=== PATIENT | male | born 1980 | race Caucasian/White ===

== ENCOUNTER 2023-06-04 16:36 | Observation (INO) | payer MEDICAID, SELFPAY ==
[2023-06-04 16:38] VITALS: BP 136/100; PULSE 106; RESP 20; TEMP 36.4; O2SAT 97; BMI 20.5
--- NOTE | 2023-06-04 16:48 | EX.ED.SAOD ---
HPI History of Present Illness Chief Complaint: Substance Abuse Detail of Chief Complaint: Heroin addiction Informant: patient Onset/Context/Timing Onset: Month(s) Context: Sudden Onset Timing: Continuous Quality: Uses daily. Has not had any heroin since yesterday Location: Snorts Current Severity: Moderate Maximum Severity: Moderate Worsened by: Abstinence Relieved by: Nothing Associated Symptoms Associated Symptoms: Positive for diarrhea*, tremor and palpatations; Negative for vomiting*, fever*, rash*, seizure, change in mental status, trauma, sex for drugs*, suicidal ideation or homicidal ideation Narrative Narrative: Patient is a 43-year-old male. He presents because he has problem with heroin use. He was in a program 1.5 years ago. He states he only stayed for a week. He did not complete the course of treatment. He began using several months ago. He states this is affected his life as far as social employment etc. States he snorts significant amount daily. Is not snorted since yesterday. He does report tremors, palpitations diarrhea abdominal cramps. He states he has been tested for hepatitis and is negative. He has never injected. He denies smoking. Prior similar symptoms: Yes Recent Illness/Hospitalization: No PFSH PFSH Medical History (Updated 06/04/23 @ 17:06 by Janie Henley) Drug abuse Home Medications NK 06/04/23 [History Last Taken Unknown] Allergy/AdvReac Type Severity Reaction Status Date / Time No Known Allergies Allergy Verified 06/04/23 16:37 Surgical History no surgical history no surgical history Social History (Updated 06/04/23 @ 16:[address] Jefferson Alcaraz MD) household members: none Smoking Status: Current some day smoker tobacco type: cigarettes substance use type: heroin ROS ROS ED Constitutional Constitutional ED: Reports chills, sweats and weight loss; Denies fever(s) or subjective Eyes Eyes: Denies blurry vision, change in vision or diplopia ENT ENT ED: Reports rhinorrhea; Denies ear pain or sore throat Cardiovascular Cardiovascular: Reports palpitations; Denies chest pain Respiratory/Chest Respiratory/Chest: Denies cough, dyspnea or dyspnea on exertion Gastrointestinal Gastrointestinal: Reports abdominal pain and diarrhea; Denies constipation, melena, nausea or vomiting Genitourinary Genitourinary ED: Denies dysuria or urinary frequency Musculoskeletal Musculoskeletal: Denies arthralgias or myalgias Integumentary Denies rash Neurologic Neurologic: Denies headache(s) or paresthesias Hematologic/Lymphatic Hematologic/Lymphatic: Denies easy bleeding or easy bruising EXAM Physical Exam Const Vital Signs: 06/04/23 16:38 Temperature 97.6 F L Temperature Source Temporal Pulse Rate 106 H Respiratory Rate 20 H Blood Pressure 136/100 H Blood Pressure Mean 112 Pulse Ox 97 Oxygen Delivery Method Room Air Positive well nourished, well developed and cachectic Constitutional Narrative: Patient appears very thin. His clothes are loose on him. He does not Dors weight loss. States he feels slightly anxious. General Appearance ED: well developed and cachectic; Negative for pallor Nutritional Appearance: cachectic HEENT Reports dry mucous membranes HEENT Narrative: Head is atraumatic and normocephalic. Ears normal. Patient has rhinorrhea. Posterior pharynx is normal. Mouth ED: Yes dry mucous membranes Mouth: dry mucous membranes Eyes PERRL and EOMs intact bilaterally Eyes Narrative: There is no nystagmus. General Eye ED: Negative for pale conjunctiva or scleral icterus Neck no lymphadenopathy, supple and no JVD Lymph Lymphatic: no lymphadenopathy noted and lymphadenopathy Chest Wall inspection of chest normal and palpation of chest normal Resp normal respiratory effort and clear to auscultation bilaterally Cardio regular rhythm, S1 normal heart sound, S2 normal heart sound and no murmurs Rate: tachycardic GI soft to palpation, non-distended and no masses; Negative for non-tender Auscultation: hyperactive bowel sounds Back/Spine no CVA tenderness Extremity Extremity Narrative: There is no clubbing or cyanosis noted. Piloerection noted. General Extremety ED: Negative for edema or tenderness General Extremity: Negative for edema Neuro oriented x3 and CN's II-XII intact bilaterally Rebel Coma Scale: document GCS findings Spontaneous Obeys Commands Oriented 15 Sensorium / Orientation: alert Speech: speech normal Psych thought process normal Mood & Affect: anxious Skin General Skin Exam: Negative for jaundice or pallor Lesions: no lesions Rashes: no rashes MDM MDM MDM Narrative Medical decision making narrative: Patient has signs symptoms of withdrawal from heroin. Patient was treated with phenobarb. Appropriate blood work was obtained for admission. Will contact hospitalist for admission for detox from heroin. Lab Data Labs: Lab was paged to draw patient's blood work. Will contact hospitalist for admission. Hospitalist can follow-up the blood work. Treatment and Re-Evaluation Narrative: Labs to be checked by hospitalist. Discharge Plan Triage Chief Complaint: Substance Abuse ED Provider: Jefferson Alcaraz Dx/Rx/DC Orders Clinical Impression: Opiate withdrawal, Sinus tachycardia seen on radiographer cardiac catheterization, Heroin addiction, Elevated BP without diagnosis of hypertension Prescriptions: No Action NK Primary Care Provider: Care Physician,No Primary Referrals: NOT,DEFINED [Non-Staff] - Disposition Disposition: Acute Care Hospital [facility]
[2023-06-04] MEDS: Phenobarbital 32.4 MG Tablet 97.2 MG PO (17:04)
[2023-06-04] MEDS: Ondansetron ODT 4 MG Tablet PO (17:04)
[2023-06-04] MEDS: Dicyclomine 10 MG Capsule 20 MG PO (17:04)
--- NOTE | 2023-06-04 17:16 | ED.RN ---
called lab to assist with blood draw. attempt by this RN and Nayla DEVLIN x2
[2023-06-04 17:41] LABS: Absolute Lymphocyte Count 0.77 X10^3/uL (0.83-4.51); Absolute Neutrophil Count 23.7 X10^3/uL (2.0-7.7); Basophil# 0.17 X10^3/uL; Basophil% 0.7 % (0-1); Eosinophil# 0.08 X10^3/uL; Eosinophils% 0.3 % (0-5); Hemoglobin 15.5 g/dL (13.0-16.5); Lymphocyte # 0.77 X10^3/ul (0.83-4.51); Mean Corpuscular Hgb 29.6 pg (27.0-32.0); Mean Corpuscular Volume 89.9 fL (80-94); Mean Platelet Vol. 10.3 fl (6.2-12.0); Monocyte# 0.63 X10^3/uL; Monocyte% 2.5 % (0-10); NRBC Flagged by Analyzer 0 % (0-5); Neutrophil % 92.8 % (47-70); POSITIVE DIFFERENTIAL YES; Platelet Count 240 K/mm3 (150-450); RBC Distribution Width CV 12.8 % (11.6-14.6); RBC Distribution Width SD 42.2 fl (35.1-43.9); Red Blood Count 5.23 M/mm3 (4.6-6.2); White Blood Count 25.5 K/mm3 (4.4-11.0)
[2023-06-04 17:43] LABS: Differential Indicated SCAN CRITERIA MET
--- NOTE | 2023-06-04 17:49 | NURSING ---
MED SURG THOMAS HEROIN WITHDRAWAL AND ADDICTION
[2023-06-04 17:55] LABS: Alcohol, Blood (Medical)-Serum < 3.0 mg/dL
--- NOTE | 2023-06-04 18:01 | PCM.HP.STD ---
HPI - General General Date of Service: 06/04/23 Chief Complaint: Heroin detox HPI Narrative PIOTR BARILLAS, is a 43-year-old male with history of heroin use disorder presented to [facility] ED 06/04/2023 for opioid detox. He was in a program a year and a half ago but only stayed for a week and did not complete course of treatment. Recently he has been using for several months and uses heroin and this has begun to affect his life in multiple areas. Snorts a significant amount of heroin daily but has not started since yesterday and denies any IV drug use. Does have some tremors, palpitations, diarrhea, abdominal cramps. Hospitalist contacted for admission for detox. Patient laying in bed with family member at bedside, gave permission to discuss in front of family member. Patient endorses snorting heroin daily for the past several months with last use yesterday and has had some chills and aches, patient got phenobarb in the ED so was tired and answers I do not know to most questions. [facility] Medical History (Updated 06/04/23 @ 18:[address] Reba Atkinson MD) Drug abuse Home Medications NK 06/04/23 [History Last Taken Unknown] Allergy/AdvReac Type Severity Reaction Status Date / Time No Known Allergies Allergy Verified 06/04/23 16:37 Surgical History no surgical history Social History (Updated 06/04/23 @ 16:[address] Jefferson Alcaraz MD) household members: none Smoking Status: Current some day smoker tobacco type: cigarettes substance use type: heroin ROS ROS Narrative Unable to fully obtain due to cooperation but does report some chills and aches and diarrhea Vital Signs Vital Signs Vital Signs: 06/04/23 16:38 Temperature 97.6 F L Temperature Source Temporal Pulse Rate 106 H Respiratory Rate 20 H Blood Pressure 136/100 H Blood Pressure Mean 112 Pulse Ox 97 Oxygen Delivery Method Room Air Weight Weight: 68.81 kg Body Mass Index (BMI) 20.5 Physical Exam Narrative General: Resting comfortably in bed HEENT: Atraumatic, normocephalic, dry lips Eyes: Primarily keeps eyes closed Neck: Supple Respiratory: normal respiratory effort Cardiovascular: no edema appreciated GI: nondistended Extremities: Moving all extremities Neuro: No overt focal neurological deficits Psych: Minimally cooperative Results Lab / Micro Data 06/04/23 Unknown 06/04/23 Unknown Labs: Laboratory Results - last 24 hr 06/04/23 : WBC 25.5 H, RBC 5.23, Hgb 15.5, Hct 47.0, MCV 89.9, MCH 29.6, MCHC 33.0, RDW Std Deviation 42.2, RDW Coeff of Saundra 12.8, Plt Count 240, MPV 10.3, Immature Gran % (Auto) 0.700, Neut % (Auto) 92.8 H, Lymph % (Auto) 3.0 L, [place] % (Auto) 2.5, Eos % (Auto) 0.3, Baso % (Auto) 0.7, Absolute Neuts (auto) 23.7 H, Absolute Lymphs (auto) 0.77 L, Nucleated RBC % 0, Ethyl Alcohol < 3.0 Assessment & Plan Assessment/Plan (1) Opiate withdrawal: (2) Heroin addiction: (3) Leukocytosis: PLAN: Plan #Acute opiate withdrawal - Subutex taper initiated - As needed Tylenol, ibuprofen, bowel regimen, gabapentin, Bentyl, Vistaril, methocarbamol, clonidine - As needed trazodone nightly - As needed antiemetics -Once patient begins to clinically improve will discuss further discharge planning -Denies any other substance use including alcohol use # Leukocytosis -Clinically patient appears very dry -Afebrile -Patient not forthcoming with ROS and only reports some chills, achiness, diarrhea, stuffy nose which could all be due to his heroin withdraw or could be viral in nature -Will check nasal swabs and enteric panel -Will also check UA -IV fluids #Mild hyponatremia -No baseline, does not seem to have any symptoms -Repeat in AM #Tobacco use -Reports occasional use -Advise cessation -Nicotine replacement available if desired #DVT ppx: Low risk, ambulatory Reba Atkinson MD Charges/Coding Visit Charges Inpatient E&M: 31943 Init Hosp L1
[2023-06-04 18:05] LABS: Differential Comment SCANNED
[2023-06-04 18:19] LABS: ALB/GLOB Ratio 0.6 RATIO (0.9-2.4); AST(SGOT) 20 U/L (15-37); Alanine Aminotransfer ALT/SGPT 29 U/L (16-61); Albumin, Serum 3.2 g/dL (3.2-5.0); Alkaline Phosphatase 131 U/L (45-117); Anion Gap 7 (5-15); BUN 14 mg/dL (7-18); BUN/Creat Ratio 20.1 RATIO (10-20); Calcium,Total 9.8 mg/dL (8.5-10.1); Chloride 102 mmol/L (98-107); EST Glomerular Filtration Rate 132 mL/min (>60); Est Glom Filt Rate - Afr Amer 160 mL/min (>60); Estimated Creatinine Clearance 135.16 ml/min; Globulin 5.1 g/dL (2.2-4.2); Glucose 138 mg/dL (74-106); Potassium 3.7 mmol/L (3.5-5.1); Protein, Total 8.3 g/dL (6.4-8.2); Sodium Level 131 mmol/L (136-145)
[2023-06-04 18:20] VITALS: BP 116/82; PULSE 99; RESP 16; TEMP 36.4; O2SAT 95
[2023-06-04 18:21] LABS: Red Blood Cells-Urine 0 SEEN /hpf (0-5); Squamous Epithelial Cells - UA 0 SEEN /hpf (0-5)
[2023-06-04 18:24] LABS: Color, Urine Yellow (Yellow); Glucose, Dipstick Normal (Normal); Leukocyte Esterase-Dipstick 25 /ul (Negative); Nitrite-Dipstick Negative (Negative); Occult Blood-Urine Negative /ul (Negative); Protein-Dipstick 30 mg/dl (Negative); Urine Clarity Clear (Clear); Urine Urobilinogen 4 mg/dl (Normal)
[2023-06-04 18:25] LABS: Urine Bilirubin Dipstick 1 mg/dL (Negative)
[2023-06-04 18:26] LABS: Ketone-Dipstick 150 mg/dl (Negative)
[2023-06-04 18:40] LABS: Amphetamine Urine VISTA NEGATIVE (<1000 ng/mL); Barbiturate Urine VISTA NEGATIVE (< 200 ng/mL); Benzodiazepine Urine VISTA NEGATIVE (< 200 ng/mL); Cocaine Urine VISTA POSITIVE (< 300 ng/mL); Ecstacy Urine VISTA NEGATIVE (< 500 ng/mL); Methadone Urine VISTA NEGATIVE (< 300 ng/mL); PCP Urine VISTA NEGATIVE (< 25 ng/mL); THC Urine VISTA NEGATIVE (< 50 ng/mL); Vista UDS pH Range 6
[2023-06-04 18:45] LABS: Bacteria RARE /hpf (None Seen); Mucous, Urine 2+ /hpf (<or=2+); White Blood Cells 0-5 SEEN /hpf (0-5)
[2023-06-04 19:04] VITALS: BMI 20.5
[2023-06-04 19:10] VITALS: BP 110/92; PULSE 89; RESP 16; TEMP 37; O2SAT 100
[2023-06-04] MEDS: 0.9% Normal Saline (1000mL) 1,000 ML 150 ML IV (20:29)
[2023-06-04 20:47] VITALS: BP 118/89; PULSE 107; RESP 18; TEMP 37; O2SAT 97
[2023-06-04] MEDS: traZODone 100 MG Tablet PO (20:50)
[2023-06-04] MEDS: Buprenorphine HCl 2 MG TAB.SUBL SL (20:50)
[2023-06-04] MEDS: hydrOXYzine PAM 25 MG Capsule 50 MG PO (20:50)
[2023-06-04] MEDS: Methocarbamol 750 MG Tablet PO (20:50)
[2023-06-05 01:00] VITALS: BP 113/86; PULSE 90; RESP 16; TEMP 37; O2SAT 96
[2023-06-05] MEDS: 0.9% Normal Saline (1000mL) 1,000 ML 150 ML IV (03:12)
[2023-06-05] MEDS: Buprenorphine HCl 2 MG TAB.SUBL SL ×3 (04:55→19:48)
[2023-06-05 05:00] VITALS: BP 124/82; PULSE 109; RESP 16; TEMP 36.8; O2SAT 98
[2023-06-05] MEDS: Acetaminophen 325 MG Tablet 650 MG PO ×2 (05:04→16:59)
[2023-06-05] MEDS: Dicyclomine 10 MG Capsule 20 MG PO ×2 (05:04→19:50)
[2023-06-05 06:37] LABS: Absolute Lymphocyte Count 1.83 X10^3/uL (0.83-4.51); Absolute Neutrophil Count 15.7 X10^3/uL (2.0-7.7); Basophil# 0.08 X10^3/uL; Basophil% 0.4 % (0-1); Eosinophil# 0.09 X10^3/uL; Eosinophils% 0.5 % (0-5); Lymphocyte # 1.83 X10^3/ul (0.83-4.51); Lymphocyte % 9.5 % (19-41); Mean Corp Hgb Conc 33.3 g/dL (32-36); Mean Corpuscular Hgb 29.4 pg (27.0-32.0); Mean Corpuscular Volume 88.2 fL (80-94); Mean Platelet Vol. 9.8 fl (6.2-12.0); Monocyte# 1.38 X10^3/uL; Monocyte% 7.2 % (0-10); NRBC Flagged by Analyzer 0 % (0-5); Neutrophil # 15.65 X10^3/uL (2.7-7.7); Neutrophil % 81.6 % (47-70); Platelet Count 268 K/mm3 (150-450); RBC Distribution Width CV 12.8 % (11.6-14.6); RBC Distribution Width SD 41.7 fl (35.1-43.9); Red Blood Count 4.42 M/mm3 (4.6-6.2); White Blood Count 19.2 K/mm3 (4.4-11.0)
[2023-06-05 07:11] LABS: ALB/GLOB Ratio 0.6 RATIO (0.9-2.4); AST(SGOT) 13 U/L (15-37); Alanine Aminotransfer ALT/SGPT 21 U/L (16-61); Albumin, Serum 2.5 g/dL (3.2-5.0); Alkaline Phosphatase 97 U/L (45-117); Anion Gap 6 (5-15); BUN 14 mg/dL (7-18); BUN/Creat Ratio 20.4 RATIO (10-20); Calcium,Total 8.9 mg/dL (8.5-10.1); Chloride 106 mmol/L (98-107); Creatinine, Serum 0.69 mg/dL (0.70-1.30); EST Glomerular Filtration Rate 135 mL/min (>60); Est Glom Filt Rate - Afr Amer 163 mL/min (>60); Estimated Creatinine Clearance 136.49 ml/min; Globulin 4.1 g/dL (2.2-4.2); Glucose 132 mg/dL (74-106); Magnesium 2.3 mg/dL (1.6-2.6); Potassium 3.5 mmol/L (3.5-5.1); Protein, Total 6.6 g/dL (6.4-8.2); Sodium Level 138 mmol/L (136-145); Thyroid Stim Hormone (TSH) 0.27 uIU/mL (0.358-3.74)
[2023-06-05 08:32] VITALS: BP 135/98; PULSE 95; RESP 16; TEMP 36.6; O2SAT 97
--- NOTE | 2023-06-05 08:40 | PN.HOSP_ITS ---
Reason for Visit Reason for Visit: Diagnoses Elevated white blood cell count, unspecified (06/04/23) Opioid dependence, uncomplicated (06/04/23) Opioid use, unspecified with withdrawal (06/04/23) Objective Data Objective Data Vital Signs: Vital Signs Temp Pulse Resp BP Pulse Ox O2 Del Method 97.8 F 95 16 135/98 H 97 Room Air 06/05/23 08:32 06/05/23 08:32 06/05/23 08:32 06/05/23 08:32 06/05/23 08:32 06/05/23 08:32 Oxygen Delivery Method Room Air Weight: 151 lb Body Mass Index (BMI) 20.5 Intake & Output: Intake and Output for Last 24 Hours 06/03/23 06/04/23 06/05/23 23:59 23:59 23:59 Intake Total 1000 / 1000 Balance 1000 / 1000 Lab / Micro Data 06/05/23 06:10 06/05/23 06:10 Labs: Laboratory Results - last 24 hr 06/04/23 18:20: Urine Color Yellow, Urine Clarity Clear, Urine pH 6.0, Ur Specific [place] 1.020, Urine Protein 30 H, Urine Glucose (UA) Normal, Urine Ketones 150 A*, Urine Occult Blood Negative, Urine Nitrite Negative, Urine Bilirubin 1 H, Urine Urobilinogen 4 H, Ur Leukocyte Esterase 25 H, Urine RBC 0 S EEN, Urine WBC 0-5 SEEN, Ur Squamous Epith Cells 0 SEEN, Urine Bacteria RARE, Urine Mucus 2+ , Urine Opiates Screen NEGATIVE, Urine Methadone Screen NEGATIVE, Ur Barbiturates Screen NEGATIVE, Ur Phencyclidine Scrn NEGATIVE, Ur Amphetamines Screen NEGATIVE, MDMA (Ecstasy) Screen NEGATIVE, U Benzodiazepines Scrn NEGATIVE, Urine Cocaine Screen POSITIVE H, U Cannabinoids Screen NEGATIVE, Ur Drug Screen Comment 06/04/23 : WBC 25.5 H, RBC 5.23, Hgb 15.5, Hct 47.0, MCV 89.9, MCH 29.6, MCHC 33.0, RDW Std Deviation 42.2, RDW Coeff of Saundra 12.8, Plt Count 240, MPV 10.3, Immature Gran % (Auto) 0.700, Neut % (Auto) 92.8 H, Lymph % (Auto) 3.0 L, [place] % (Auto) 2.5, Eos % (Auto) 0.3, Baso % (Auto) 0.7, Absolute Neuts (auto) 23.7 H, Absolute Lymphs (auto) 0.77 L, Nucleated RBC % 0, Differential Comment SCANNED, Sodium 131 L, Potassium 3.7, Chloride 102, Carbon Dioxide 22.0, Anion Gap 7, BUN 14, Creatinine 0.70, Estim Creat Clear Calc 135.16, Est GFR (MDRD) Af Amer 160, Est GFR (MDRD) Non-Af 132, BUN/Creatinine Ratio 20.1 H, Glucose 138 H, Calcium 9.8, Total Bilirubin 0.60, AST 20, ALT 29, Alkaline Phosphatase 131 H, Total Protein 8.3 H, Albumin 3.2, Globulin 5.1 H, Albumin/Globulin Ratio 0.6 L, Ethyl Alcohol < 3.0 06/05/23 06:10: WBC 19.2 H, RBC 4.42 L, Hgb 13.0, Hct 39.0 L, MCV 88.2, MCH 29.4, MCHC 33.3, RDW Std Deviation 41.7, RDW Coeff of Saundra 12.8, Plt Count 268, MPV 9.8, Immature Gran % (Auto) 0.800, Neut % (Auto) 81.6 H, Lymph % (Auto) 9.5 L, [place] % (Auto) 7.2, Eos % (Auto) 0.5, Baso % (Auto) 0.4, Absolute Neuts (auto) 15.7 H, Absolute Lymphs (auto) 1.83, Nucleated RBC % 0, Sodium 138, Potassium 3.5, Chloride 106, Carbon Dioxide 26.0, Anion Gap 6, BUN 14, Creatinine 0.69 L, Estim Creat Clear Calc 136.49, Est GFR (MDRD) Af Amer 163, Est GFR (MDRD) Non-Af 135, BUN/Creatinine Ratio 20.4 H, Glucose 132 H, Calcium 8.9, Magnesium 2.3, Total Bilirubin 0.30, AST 13 L, ALT 21, Alkaline Phosphatase 97, Total Protein 6.6, Albumin 2.5 L, Globulin 4.1, Albumin/Globulin Ratio 0.6 L, TSH 0.27 L Micro: Microbiology 06/04/23 20:08 Interface Orders Respiratory Panel (PCR) - Final 06/04/23 20:08 Mucosa - Nose SARS-CoV-2, Influenza & RSV (PCR) - Final Physical Exam Narrative Seen and examined. Patient having a lot of anxiety, crawling position. Feeling cold. Did not finish his breakfast. Physical exam General: Awake, drowsy and lethargic, oriented x3, Cooperative HEENT: Atraumatic, PERRLA, EOMI, Normocephalic Oral: Oral mucosa dry. No Gingival or Mucosal Lesions/ Ulcerations Neck: Supple, No JVD, Negative Carotid Bruits Chest wall/Lungs: Air entry diminished in bilateral lung bases. No crepitation/rhonchi Cardiovascular: Regular rate, Regular Rhythm, Normal S1, Normal S2, No M/G/R Abdomen: Bowel Sounds Present, Soft, Non Tender, Non-Distended : No dysuria. No renal angle tenderness. No suprapubic tenderness. Extremities: No edema, Capillary Refill Less than 3 Seconds Skin: No rashes, No breakdown. Needle track signs not obvious on upper, lower extremity and neck. Musculoskeletal: No Tenderness to Palpation of Joints or Extremities Neurological: Cranial nerves II-XII grossly intact, DTR 2+/4. No acute focal neurological deficit. Psych/Mental Status: Anxious. Denies hallucination. Assessment & Plan Assessment/Plan (1) Opiate withdrawal: (2) Heroin addiction: (3) Leukocytosis: PLAN: Plan This 43-year-old gentleman being admitted for acute opioid withdrawal syndrome but also has significant leukocytosis. #Acute opiate withdrawal syndrome with history of chronic opioid use disorder, dependence and tolerance: Patient is admitted on [facility] floor. The patient is started on buprenorphine along with other adjunctive medications as needed for m edical stabilization as per order set of opioid withdrawal syndrome.Patient also on trazodone, hydroxyzine, gabapentin as needed ordered. Advised quitting opioid use. social media project manager consult. Denies any other substance use including opioid use but urine was positive for cocaine. # Leukocytosis, exact etiology unclear possible patient is very dry, noninflammatory/noninfectious: Patient denies any focal symptoms of infection including fever. Denies diarrhea stuffy nose achiness. No abdominal te nderness. SARS-CoV-2 influenza and RSV PCR negative. Respiratory panel negative.C. difficile and enteric panel pending but patient probably did not had bowel movement. UA not suggestive of UTI and patient does not have burning micturition/dysuria. No indication for IV antibiotics.Leukocytosis improving. - - #Mild hyponatremia: Serum sodium was 131. Improved to 138. Potassium low normal therefore replaced. #Tobacco use -Reports occasional use -Advise cessation -Nicotine replacement available if desired Low TSH: Exact significance unclear. Free T4 ordered for tomorrow AM. Possible Euthroid sick syndrome. #DVT ppx: Low risk, ambulatory Microbiology Past 72 Hours 06/04/23 20:08 Interface Orders Respiratory Panel (PCR) - Final 06/04/23 20:08 Mucosa - Nose SARS-CoV-2, Influenza & RSV (PCR) - Final Laboratory Results 06/04/23 18:20: Urine Color Yellow, Urine Clarity Clear, Urine pH 6.0, Ur Specific [place] 1.020, Urine Protein 30 H, Urine Glucose (UA) Normal, Urine Ketones 150 A*, Urine Occult Blood Negative, Urine Nitrite Negative, Urine Bilirubin 1 H, Urine Urobilinogen 4 H, Ur Leukocyte Esterase 25 H, Urine RBC 0 SEEN, Urine WBC 0-5 SEEN, Ur Squamous Epith Cells 0 SEEN, Urine Bacteria RARE, Urine Mucus 2+, Urine Opiates Screen NEGATIVE, Urine Methadone Screen NEGATIVE, Ur Barbiturates Screen NEGATIVE, Ur Phencyclidine Scrn NEGATIVE, Ur Amphetamines Screen NEGATIVE, MDMA (Ecstasy) Screen NEGATIVE, U Benzodiazepines Scrn NEGATIVE, Urine Cocaine Screen POSITIVE H, U Cannabinoids Screen NEGATIVE, Ur Drug Screen Comment 06/04/23 : WBC 25.5 H, RBC 5.23, Hgb 15.5, Hct 47.0, MCV 89.9, MCH 29.6, MCHC 33.0, RDW Std Deviation 42.2, RDW Coeff of Saundra 12.8, Plt Count 240, MPV 10.3, Immature Gran % (Auto) 0.700, Neut % (Auto) 92.8 H, Lymph % (Auto) 3.0 L, [place] % (Auto) 2.5, Eos % (Auto) 0.3, Baso % (Auto) 0.7, Absolute Neuts (auto) 23.7 H, Absolute Lymphs (auto) 0.77 L, Nucleated RBC % 0, Differential Comment SCANNED, Sodium 131 L, Potassium 3.7, Chloride 102, Carbon Dioxide 22.0, Anion Gap 7, BUN 14, Creatinine 0.70, Estim Creat Clear Calc 135.16, Est GFR (MDRD) Af Amer 160, Est GFR (MDRD) Non-Af 132, BUN/Creatinine Ratio 20.1 H, Glucose 138 H, Calcium 9.8, Total Bilirubin 0.60, AST 20, ALT 29, Alkaline Phosphatase 131 H, Total Protein 8.3 H, Albumin 3.2, Globulin 5.1 H, Albumin/Globulin Ratio 0.6 L, Ethyl Alcohol < 3.0 06/05/23 06:10: WBC 19.2 H, RBC 4.42 L, Hgb 13.0, Hct 39.0 L, MCV 88.2, MCH 29.4, MCHC 33.3, RDW Std Deviation 41.7, RDW Coeff of Saundra 12.8, Plt Count 268, MPV 9.8, Immature Gran % (Auto) 0.800, Neut % (Auto) 81.6 H, Lymph % (Auto) 9.5 L, [place] % (Auto) 7.2, Eos % (Auto) 0.5, Baso % (Auto) 0.4, Absolute Neuts (auto) 15.7 H, Absolute Lymphs (auto) 1.83, Nucleated RBC % 0, Sodium 138, Potassium 3.5, Chloride 106, Carbon Dioxide 26.0, Anion Gap 6, BUN 14, Creatinine 0.69 L, Estim Creat Clear Calc 136.49, Est GFR (MDRD) Af Amer 163, Est GFR (MDRD) Non-Af 135, BUN/Creatinine Ratio 20.4 H, Glucose 132 H, Calcium 8.9, Magnesium 2.3, Total Bilirubin 0.30, AST 13 L, ALT 21, Alkaline Phosphatase 97, Total Protein 6.6, Albumin 2.5 L, Globulin 4.1, Albumin/Globulin Ratio 0.6 L, TSH 0.27 L Charges/Coding Visit Charges Inpatient E&M: 81346 Subs Hosp L2
[2023-06-05] MEDS: Methocarbamol 750 MG Tablet PO ×2 (11:30→19:50)
[2023-06-05 12:25] LABS: Magnesium 2.3 mg/dL (1.6-2.6); Phosphorus 2.1 mg/dL (2.5-4.9)
[2023-06-05] MEDS: Lactated Ringers 1,000 ML 999 ML IV (13:13)
[2023-06-05] MEDS: 0.9% Saline Lock 10 ML Syringe IV (13:13)
[2023-06-05] MEDS: Potassium Chloride Oral Tablet 20 MEQ 40 MEQ PO (13:15)
[2023-06-05 13:41] VITALS: BP 147/98; PULSE 96; RESP 16; TEMP 36.8; O2SAT 100
--- NOTE | 2023-06-05 14:14 | ADDICTION ---
This communications writer met with PT to conduct ASAM, MSE, AUDIT assessments and to plan for d/c. PT A+Ox4 and participated actively. All assessments completed and placed in PT's chart. PT plans to f/u with [facility] for follow-up treatment services. [facility] will provide transportation to treatment on Thursday post d/c from [facility].
[2023-06-05] MEDS: Gabapentin 300 MG Capsule PO (16:59)
[2023-06-05] MEDS: Loperamide 2 MG Capsule PO (19:50)
[2023-06-05] MEDS: cloNIDine HCl 0.1 MG Tablet PO (19:50)
[2023-06-05] MEDS: traZODone 100 MG Tablet PO (19:50)
[2023-06-05] MEDS: Ondansetron 8 MG Tablet PO (19:50)
[2023-06-05 21:46] VITALS: BP 124/89; PULSE 97; RESP 18; TEMP 36.6; O2SAT 98
[2023-06-06 04:15] VITALS: BP 112/81; PULSE 80; RESP 18; TEMP 36.9; O2SAT 96
[2023-06-06] MEDS: Dicyclomine 10 MG Capsule 20 MG PO ×3 (04:19→19:49)
[2023-06-06] MEDS: Gabapentin 300 MG Capsule PO ×2 (04:19→16:57)
[2023-06-06] MEDS: cloNIDine HCl 0.1 MG Tablet PO ×2 (04:19→19:50)
[2023-06-06] MEDS: Buprenorphine HCl 2 MG TAB.SUBL SL ×3 (04:19→19:49)
[2023-06-06] MEDS: hydrOXYzine PAM 25 MG Capsule 50 MG PO (04:20)
[2023-06-06 06:44] LABS: Hematocrit 39.8 % (40-54); Mean Corp Hgb Conc 32.7 g/dL (32-36); Mean Corpuscular Hgb 29.3 pg (27.0-32.0); Mean Corpuscular Volume 89.8 fL (80-94); Mean Platelet Vol. 9.9 fl (6.2-12.0); Platelet Count 299 K/mm3 (150-450); RBC Distribution Width CV 13.2 % (11.6-14.6); RBC Distribution Width SD 43.7 fl (35.1-43.9); Red Blood Count 4.43 M/mm3 (4.6-6.2); White Blood Count 10.3 K/mm3 (4.4-11.0)
[2023-06-06 07:07] LABS: Anion Gap 3 (5-15); BUN 10 mg/dL (7-18); BUN/Creat Ratio 14.2 RATIO (10-20); Calcium,Total 9.1 mg/dL (8.5-10.1); Chloride 111 mmol/L (98-107); EST Glomerular Filtration Rate 131 mL/min (>60); Est Glom Filt Rate - Afr Amer 158 mL/min (>60); Estimated Creatinine Clearance 134.54 ml/min; Glucose 125 mg/dL (74-106); Potassium 3.8 mmol/L (3.5-5.1); Sodium Level 142 mmol/L (136-145)
[2023-06-06] MEDS: Potassium Chloride Oral Tablet 20 MEQ 40 MEQ PO (08:29)
[2023-06-06] MEDS: Methocarbamol 750 MG Tablet PO ×2 (08:31→16:57)
[2023-06-06 08:44] VITALS: BP 114/89; PULSE 75; RESP 16; TEMP 36.8; O2SAT 99
[2023-06-06] MEDS: Acetaminophen 325 MG Tablet 650 MG PO ×2 (11:49→19:49)
[2023-06-06 12:00] VITALS: BP 122/82; PULSE 104; RESP 16; TEMP 36.9; O2SAT 98
--- NOTE | 2023-06-06 15:28 | PCM.PN.HOSP ---
Reason for Visit Reason for Visit: Diagnoses Elevated white blood cell count, unspecified (06/04/23) Opioid dependence, uncomplicated (06/04/23) Opioid use, unspecified with withdrawal (06/04/23) Objective Data Objective Data Vital Signs: Vital Signs Temp Pulse Resp BP Pulse Ox O2 Del Method 98.4 F 104 H 16 122/82 H 98 Room Air 06/06/23 12:00 06/06/23 12:00 06/06/23 12:00 06/06/23 12:00 06/06/23 12:00 06/06/23 14:04 Oxygen Delivery Method Room Air Weight: 150 lb 15.984 oz Body Mass Index (BMI) 20.5 Intake & Output: Intake and Output for Last 24 Hours 06/04/23 06/05/23 06/06/23 23:59 23:59 23:59 Intake Total 5097.5 / 5097.5 800 / 800 Balance 5097.5 / 5097.5 800 / 800 Lab / Micro Data 06/06/23 05:25 06/06/23 05:25 Labs: Laboratory Results - last 24 hr 06/06/23 05:25: WBC 10.3, RBC 4.43 L, Hgb 13.0, Hct 39.8 L, MCV 89.8, MCH 29.3, MCHC 32.7, RDW Std Deviation 43.7, RDW Coeff of Saundra 13.2, Plt Count 299, MPV 9.9, Sodium 142, Potassium 3.8, Chloride 111 H, Carbon Dioxide 28.0, Anion Gap 3 L, BUN 10, Creatinine 0.70, Estim Creat Clear Calc 134.54, Est GFR (MDRD) Af Amer 158, Est GFR (MDRD) Non-Af 131, BUN/Creatinine Ratio 14.2, Glucose 125 H, Calcium 9.1 Micro: Microbiology 06/05/23 17:00 Stool Enteric Bacteriology - Final 06/05/23 17:00 Stool Clostridioides difficile (PCR) - Final 06/04/23 20:08 Interface Orders Respiratory Panel (PCR) - Final 06/04/23 20:08 Mucosa - Nose SARS-CoV-2, Influenza & RSV (PCR) - Final Physical Exam Narrative Seen and examined. Patient is states his anxiety level, restlessness is better. Having diarrhea loose bowel movement and abdominal cramps. He got medications. Physical exam General: Awake,oriented x3, Cooperative. More calmer and quite HEENT: Atraumatic, PERRLA, EOMI, Normocephalic Oral: Oral mucosa moist. No Gingival or Mucosal Lesions/ Ulcerations Neck: Supple, No JVD, Negative Carotid Bruits Chest wall/Lungs: Air entry diminished in bilateral lung bases. No crepitation/rhonchi Cardiovascular: Regular rate, Regular Rhythm, Normal S1, Normal S2, No M/G/R Abdomen: Bowel Sounds Present, Soft, Non Tender, Non-Distended : No dysuria. No renal angle tenderness. No suprapubic tenderness. Extremities: No edema, Capillary Refill Less than 3 Seconds Skin: No rashes, No breakdown. Needle track signs not obvious on upper, lower extremity and neck. Musculoskeletal: No Tenderness to Palpation of Joints or Extremities Neurological: Cranial nerves II-XII grossly intact, DTR 2+/4. No acute focal neurological deficit. Psych/Mental Status: Anxious. Denies hallucination. Assessment & Plan Assessment/Plan (1) Opiate withdrawal: (2) Heroin addiction: (3) Leukocytosis: PLAN: Plan This 43-year-old gentleman being admitted for acute opioid withdrawal syndrome but also has significant leukocytosis. #Acute opiate withdrawal syndrome with history of chronic opioid use disorder, dependence and tolerance: [facility] The patient is started on buprenorphine along with other adjunctive medications as needed for medical stabilization as per order set of opioid withdrawal syndrome.Patient also on trazodone, hydroxyzine, gabapentin as needed ordered. Advised quitting opioid use. card room manager consult. Denies any other substance use including opioid use but urine was positive for cocaine. # Leukocytosis, exact etiology unclear possible patient is very dry, noninflammatory/noninfectious: Patient denies any focal symptoms of infection including fever. Denies diarrhea stuffy nose achiness. No abdominal tenderness. SARS-CoV-2 influenza and RSV PCR negative. Respiratory panel negative.C. difficile and enteric panel pending but patient probably did not had bowel movement. UA not suggestive of UTI and patient does not have burning micturition/dysuria. No indication for IV antibiotics.Leukocytosis improving. 06/06: Leukocytosis resolved. WBC count 10.3 thousand. - #Mild hyponatremia: Serum sodium was 131. Improved to 138. Potassium low normal therefore replaced. 2/24: Serum sodium 142. Potassium 3.8. Hypophosphatemia, phosphorus 2.1. Neutra-Phos ordered. #Tobacco use -Reports occasional use -Advise cessation -Nicotine replacement available if desired Low TSH: Exact significance unclear. Free T4 ordered for tomorrow AM. Possible Euthroid sick syndrome. #DVT ppx: Low risk, ambulatory Microbiology Past 72 Hours 06/05/23 17:00 Stool Enteric Bacteriology - Final 06/05/23 17:00 Stool Clostridioides difficile (PCR) - Final 06/04/23 20:08 Interface Orders Respiratory Panel (PCR) - Final 06/04/23 20:08 Mucosa - Nose SARS-CoV-2, Influenza & RSV (PCR) - Final Laboratory Results 06/06/23 05:25: WBC 10.3, RBC 4.43 L, Hgb 13.0, Hct 39.8 L, MCV 89.8, MCH 29.3, MCHC 32.7, RDW Std Deviation 43.7, RDW Coeff of Saundra 13.2, Plt Count 299, MPV 9.9, Sodium 142, Potassium 3.8, Chloride 111 H, Carbon Dioxide 28.0, Anion Gap 3 L, BUN 10, Creatinine 0.70, Estim Creat Clear Calc 134.54, Est GFR (MDRD) Af Amer 158, Est GFR (MDRD) Non-Af 131, BUN/Creatinine Ratio 14.2, Glucose 125 H, Calcium 9.1 Charges/Coding Visit Charges Inpatient E&M: 52821 Subs Hosp L2
[2023-06-06] MEDS: Loperamide 2 MG Capsule PO (16:57)
[2023-06-06] MEDS: Na Biphos/Potassium Phosphate PACKET 1 PACKET PO ×2 (16:57→19:48)
[2023-06-06 17:02] VITALS: BP 117/79; PULSE 99; RESP 16; TEMP 37.1; O2SAT 98
[2023-06-06] MEDS: Ondansetron 8 MG Tablet PO (19:48)
[2023-06-06] MEDS: Ibuprofen 600 MG Tablet PO (19:49)
[2023-06-06] MEDS: traZODone 100 MG Tablet PO (19:50)
[2023-06-06 20:01] VITALS: BP 126/83; PULSE 88; RESP 18; TEMP 36.8; O2SAT 97
[2023-06-07 03:55] VITALS: BP 137/84; PULSE 87; RESP 18; TEMP 36.7; O2SAT 100
[2023-06-07] MEDS: Na Biphos/Potassium Phosphate PACKET 1 PACKET PO ×3 (07:54→21:14)
[2023-06-07] MEDS: Buprenorphine HCl 2 MG TAB.SUBL SL (07:54)
[2023-06-07] MEDS: Dicyclomine 10 MG Capsule 20 MG PO ×2 (07:54→15:26)
[2023-06-07] MEDS: Gabapentin 300 MG Capsule PO ×2 (07:54→21:14)
[2023-06-07] MEDS: Ibuprofen 600 MG Tablet PO ×2 (07:54→17:36)
[2023-06-07 08:36] VITALS: BP 123/84; PULSE 87; RESP 16; TEMP 36.9; O2SAT 99
[2023-06-07 11:49] VITALS: BP 119/86; PULSE 98; RESP 16; TEMP 36.8; O2SAT 97
--- NOTE | 2023-06-07 12:32 | PCM.PN.HOSP ---
Reason for Visit Reason for Visit: Diagnoses Elevated white blood cell count, unspecified (06/04/23) Opioid dependence, uncomplicated (06/04/23) Opioid use, unspecified with withdrawal (06/04/23) Objective Data Objective Data Vital Signs: Vital Signs Temp Pulse Resp BP Pulse Ox O2 Del Method 98.2 F 98 16 119/86 H 97 Room Air 06/07/23 11:49 06/07/23 11:49 06/07/23 11:49 06/07/23 11:49 06/07/23 11:49 06/07/23 11:49 Oxygen Delivery Method Room Air Weight: 150 lb 15.984 oz Body Mass Index (BMI) 20.5 Intake & Output: Intake and Output for Last 24 Hours 06/05/23 06/06/23 06/07/23 23:59 23:59 23:59 Intake Total 5097.5 / 5097.5 1250 / 2250 2100 / 2100 Balance 5097.5 / 5097.5 1250 / 2250 2100 / 2100 Lab / Micro Data 06/06/23 05:25 06/06/23 05:25 Micro: Microbiology 06/05/23 17:00 Stool Enteric Bacteriology - Final 06/05/23 17:00 Stool Clostridioides difficile (PCR) - Final 06/04/23 20:08 Interface Orders Respiratory Panel (PCR) - Final 06/04/23 20:08 Mucosa - Nose SARS-CoV-2, Influenza & RSV (PCR) - Final Physical Exam Narrative Seen and examined. Patient is states his anxiety level, restlessness is better. He got medications. Physical exam General: Awake,oriented x3, Cooperative. More calmer and quite HEENT: Atraumatic, PERRLA, EOMI, Normocephalic Oral: Oral mucosa moist. No Gingival or Mucosal Lesions/ Ulcerations Neck: Supple, No JVD, Negative Carotid Bruits Chest wall/Lungs: Air entry diminished in bilateral lung bases. No crepitation/rhonchi Cardiovascular: Regular rate, Regular Rhythm, Normal S1, Normal S2, No M/G/R Abdomen: Bowel Sounds Present, Soft, Non Tender, Non-Distended : No dysuria. No renal angle tenderness. No suprapubic tenderness. Extremities: No edema, Capillary Refill Less than 3 Seconds Skin: No rashes, No breakdown. Needle track signs not obvious on upper, lower extremity and neck. Musculoskeletal: No Tenderness to Palpation of Joints or Extremities Neurological: Cranial nerves II-XII grossly intact, DTR 2+/4. No acute focal neurological deficit. Psych/Mental Status: Anxiety level is better. Denies hallucination. Assessment & Plan Assessment/Plan (1) Opiate withdrawal: (2) Heroin addiction: (3) Leukocytosis: PLAN: Plan This 43-year-old gentleman being admitted for acute opioid withdrawal syndrome but also has significant leukocytosis. #Acute opiate withdrawal syndrome with history of chronic opioid use disorder, dependence and tolerance: Patient is admitted on [facility] floor. The patient is started on buprenorphine along with other adjunctive medications as needed for medical stabilization as per order set of opioid withdrawal syndrome.Patient also on trazodone, hydroxyzine, gabapentin as needed ordered. Advised quitting opioid use. nursery manager consult. Denies any other substance use including opioid use but urine was positive for cocaine. # Leukocytosis, exact etiology unclear possible patient is very dry, noninflammatory/noninfectious: Patient denies any focal symptoms of infection including fever. Denies diarrhea stuffy nose achiness. No abdominal tenderness. SARS-CoV-2 influenza and RSV PCR negative. Respiratory panel negative.C. difficile and enteric panel pending but patient probably did not had bowel movement. UA not suggestive of UTI and patient does not have burning micturition/dysuria. No indication for IV antibiotics.Leukocytosis improving. 06/06: Leukocytosis resolved. WBC count 10.3 thousand. 06/07: Patient is doing good. Expected discharge tomorrow. #Mild hyponatremia: Serum sodium was 131. Improved to 138. Potassium low normal therefore replaced. 06/06: Serum sodium 142. Potassium 3.8. Hypophosphatemia, phosphorus 2.1. Neutra-Phos ordered. #Tobacco use -Reports occasional use -Advise cessation -Nicotine replacement available if desired Low TSH: Exact significance unclear. Free T4 ordered for tomorrow AM. Possible Euthroid sick syndrome. #DVT ppx: Low risk, ambulatory Microbiology Past 72 Hours 06/05/23 17:00 Stool Enteric Bacteriology - Final 06/05/23 17:00 Stool Clostridioides difficile (PCR) - Final 06/04/23 20:08 Interface Orders Respiratory Panel (PCR) - Final 06/04/23 20:08 Mucosa - Nose SARS-CoV-2, Influenza & RSV (PCR) - Final Laboratory Results 06/06/23 05:25: WBC 10.3, RBC 4.43 L, Hgb 13.0, Hct 39.8 L, MCV 89.8, MCH 29.3, MCHC 32.7, RDW Std Deviation 43.7, RDW Coeff of Saundra 13.2, Plt Count 299, MPV 9.9, Sodium 142, Potassium 3.8, Chloride 111 H, Carbon Dioxide 28.0, Anion Gap 3 L, BUN 10, Creatinine 0.70, Estim Creat Clear Calc 134.54, Est GFR (MDRD) Af Amer 158, Est GFR (MDRD) Non-Af 131, BUN/Creatinine Ratio 14.2, Glucose 125 H, Calcium 9.1 Charges/Coding Visit Charges Inpatient E&M: 40355 Subs Hosp L2
[2023-06-07] MEDS: Acetaminophen 325 MG Tablet 650 MG PO ×2 (13:25→21:14)
[2023-06-07] MEDS: hydrOXYzine PAM 25 MG Capsule 50 MG PO (15:26)
[2023-06-07] MEDS: Methocarbamol 750 MG Tablet PO (15:26)
[2023-06-07 15:42] VITALS: BP 117/88; PULSE 87; RESP 16; TEMP 36.8; O2SAT 97
[2023-06-07 21:03] VITALS: BP 148/82; PULSE 86; RESP 16; TEMP 36.4; O2SAT 94
[2023-06-07] MEDS: traZODone 100 MG Tablet PO (21:14)
[2023-06-07] MEDS: cloNIDine HCl 0.1 MG Tablet PO (21:14)
[2023-06-07] MEDS: Loperamide 2 MG Capsule PO (21:14)
[2023-06-07] MEDS: Ondansetron 8 MG Tablet PO (21:15)
[2023-06-08 03:05] VITALS: BP 117/77; PULSE 73; RESP 16; TEMP 36.5; O2SAT 97
[2023-06-08] MEDS: Methocarbamol 750 MG Tablet PO (03:11)
[2023-06-08] MEDS: hydrOXYzine PAM 25 MG Capsule 50 MG PO ×2 (03:11→09:26)
[2023-06-08] MEDS: Ibuprofen 600 MG Tablet PO ×2 (03:11→09:26)
[2023-06-08] MEDS: Na Biphos/Potassium Phosphate PACKET 1 PACKET PO (05:37)
[2023-06-08] MEDS: Loperamide 2 MG Capsule PO (09:27)
[2023-06-08 10:24] VITALS: BP 131/80; PULSE 93; RESP 16; TEMP 37.1; O2SAT 97
--- NOTE | 2023-06-08 10:43 | DCINST_ITS ---
Discharge Instructions Diet Discharge Diet: No restrictions Activity Discharge Activity: Return to Normal Activity Weight Bearing Status: Weight bearing as tolerated Dressing / Incision Call your doctor if you observe: Fever of 101 or Higher, Coldness, Increased Pain, Numbness or Tingling, Change in Color, Inability to urinate, Inability to have a bowel movement, Shortness of breath, Dizziness, Fainting spells, Swelling in the ankles, Chest pain, Prolonged hiccupping, Increased palpitations (irregular heartbeat) and Calf discomfort Follow Up Care When: IN 2 WEEKS Test Results: Test results from this visit will be discussed in further detail at your follow- up appointment, if applicable. Discharge Plan Admission Admit Date/Time: 06/04/23 18:01 Primary Reason for Your Visit: Acute opioid withdrawal syndrome. Attending Provider: Ryan Castellanos Primary Care Provider: Care Physician,No Primary Consulting Providers: Reba Atkinson Instructions Additional Instructions / Restrictions: Discharge to inpatient residential opioid rehab center. Discharge Orders/Prescriptions Prescriptions: New nicotine 14 mg/24 hr Patch 24 Hour 14 mg transdermal DAILY PRN (Reason: nicotine craving) Qty: 0 0RF Referrals / Follow Up: Care Physician,No Primary [Primary Care Provider] - NOT,DEFINED [Non-Staff] - Disposition Disposition (needs filled in before D/C Order can be placed): Home, Self Care
--- NOTE | 2023-06-08 10:45 | PCM.DC.SUM ---
Providers Date of Admission: 06/04/23 Date of Discharge: 06/08/23 Primary Care Physician: No Primary Care Phys Reason For Visit: OPIOID DETOX Diagnosis Discharge Diagnosis (1) Opiate withdrawal: Status: Acute Code(s): F11.93 - Opioid use, unspecified with withdrawal (2) Heroin addiction: Status: Acute Code(s): F11.20 - Opioid dependence, uncomplicated (3) Leukocytosis: Status: Acute Code(s): D72.829 - Elevated white blood cell count, unspecified Plan This 43-year-old gentleman being admitted for acute opioid withdrawal syndrome but also has significant leukocytosis. #Acute opiate withdrawal syndrome with history of chronic opioid use disorder, dependence and tolerance: Patient is admitted on [facility] floor. The patient is started on buprenorphine along with other adjunctive medications as needed for medical stabilization as per order set of opioid withdrawal syndrome.Patient also on trazodone, hydroxyzine, gabapentin as needed ordered. Advised quitting opioid use. consumer insight manager consult. Denies any other substance use including opioid use but urine was positive for cocaine. # Leukocytosis, exact etiology unclear possible patient is very dry, noninflammatory/noninfectious: Patient denies any focal symptoms of infection including fever. Denies diarrhea stuffy nose achiness. No abdominal tenderness. SARS-CoV-2 influenza and RSV PCR negative. Respiratory panel negative.C. difficile and enteric panel pending but patient probably did not had bowel movement. UA not suggestive of UTI and patient does not have burning micturition/dysuria. No indication for IV antibiotics.Leukocytosis improving. 06/06: Leukocytosis resolved. WBC count 10.3 thousand. 06/07: Patient is doing good. Expected discharge tomorrow. 06/08: Patient is doing good. Complain of nonspecific GI upset not diarrhea sometimes cramps belching and bloating symptoms. Denies history of chronic ulcer disease. Patient is being discharged to inpatient residential rehab center. Advised follow-up PCP. #Mild hyponatremia: Serum sodium was 131. Improved to 138. Potassium low normal therefore replaced. 06/06: Serum sodium 142. Potassium 3.8. Hypophosphatemia, phosphorus 2.1. Neutra-Phos ordered. #Tobacco use -Reports occasional use -Advise cessation -Nicotine replacement available if desired Low TSH: Exact significance unclear. Free T4 ordered for tomorrow AM. Possible Euthroid sick syndrome. #DVT ppx: Low risk, ambulatory Microbiology Past 72 Hours 06/05/23 17:00 Stool Enteric Bacteriology - Final 06/05/23 17:00 Stool Clostridioides difficile (PCR) - Final 06/04/23 20:08 Interface Orders Respiratory Panel (PCR) - Final 06/04/23 20:08 Mucosa - Nose SARS-CoV-2, Influenza & RSV (PCR) - Final Laboratory Results 06/06/23 05:25: WBC 10.3, RBC 4.43 L, Hgb 13.0, Hct 39.8 L, MCV 89.8, MCH 29.3, MCHC 32.7, RDW Std Deviation 43.7, RDW Coeff of Saundra 13.2, Plt Count 299, MPV 9.9, Sodium 142, Potassium 3.8, Chloride 111 H, Carbon Dioxide 28.0, Anion Gap 3 L, BUN 10, Creatinine 0.70, Estim Creat Clear Calc 134.54, Est GFR (MDRD) Af Amer 158, Est GFR (MDRD) Non-Af 131, BUN/Creatinine Ratio 14.2, Glucose 125 H, Calcium 9.1 Medications at Discharge Home Medications nicotine 14 mg/24 hr daily transdermal patch 14 mg transdermal DAILY PRN nicotine craving #0 ea 06/08/23 Physical Exam Narrative Seen and examined. Patient is states his anxiety level, restlessness is better. He got medications. Complain of nonspecific abdominal cramps/bloating. Physical exam General: Awake,oriented x3, Cooperative. More calmer and quite HEENT: Atraumatic, PERRLA, EOMI, Normocephalic Oral: Oral mucosa moist. No Gingival or Mucosal Lesions/ Ulcerations Neck: Supple, No JVD, Negative Carotid Bruits Chest wall/Lungs: Air entry diminished in bilateral lung bases. No crepitation/rhonchi Cardiovascular: Regular rate, Regular Rhythm, Normal S1, Normal S2, No M/G/R Abdomen: Bowel Sounds Present, Soft, Non Tender, Non-Distended : No dysuria. No renal angle tenderness. No suprapubic tenderness. Extremities: No edema, Capillary Refill Less than 3 Seconds Skin: No rashes, No breakdown. Needle track signs not obvious on upper, lower extremity and neck. Musculoskeletal: No Tenderness to Palpation of Joints or Extremities Neurological: Cranial nerves II-XII grossly intact, DTR 2+/4. No acute focal neurological deficit. Psych/Mental Status: Anxiety level improved. Denies hallucination. Weight / BMI Weight Weight: 150 lb 15.984 oz Body Mass Index (BMI) 20.5 ABG / Lab / Microbiology Data 06/06/23 05:25 06/06/23 05:25 Microbiology: Microbiology 06/05/23 17:00 Stool Enteric Bacteriology - Final 06/05/23 17:00 Stool Clostridioides difficile (PCR) - Final 06/04/23 20:08 Interface Orders Respiratory Panel (PCR) - Final 06/04/23 20:08 Mucosa - Nose SARS-CoV-2, Influenza & RSV (PCR) - Final D/C Instructions Discharge Diet: No restrictions Weight Bearing Status: Weight bearing as tolerated Call your doctor if you observe: Fever of 101 or Higher, Coldness, Increased Pain, Numbness or Tingling, Change in Color, Inability to urinate, Inability to have a bowel movement, Shortness of breath, Dizziness, Fainting spells, Swelling in the ankles, Chest pain, Prolonged hiccupping, Increased palpitations (irregular heartbeat) and Calf discomfort When: IN 2 WEEKS Meaningful Use Info Meaningful Use Diagnoses (Choose all that apply): None applicable Discharge Plan Admission Admit Date/Time: 06/04/23 18:01 Primary Reason for Your Visit: Acute opioid withdrawal syndrome. Attending Provider: Ryan Castellanos Primary Care Provider: Care Physician,No Primary Consulting Providers: Reba Atkinson Instructions Additional Instructions / Restrictions: Discharge to inpatient residential opioid rehab center. Discharge Orders/Prescriptions Prescriptions: New nicotine 14 mg/24 hr Patch 24 Hour 14 mg transdermal DAILY PRN (Reason: nicotine craving) Qty: 0 0RF Referrals / Follow Up: Care Physician,No Primary [Primary Care Provider] - NOT,DEFINED [Non-Staff] - Disposition Disposition (needs filled in before D/C Order can be placed): Home, Self Care Charges/Coding Visit Charges Inpatient E&M: 73312 Disch Hosp >30min
--- NOTE | 2023-06-08 11:14 | PHA.DC_ITS ---
[facility] has performed discharge medication reconciliation for this patient. D/C to inpatient rehab service. Did not parliamentary counsel. The patient's discharge medication list was reviewed for discrepancies and discrepancies were resolved. Medications at Discharge Home Medications nicotine 14 mg/24 hr daily transdermal patch 14 mg transdermal DAILY PRN nicotine craving #0 ea 06/08/23
== END 2023-06-08 11:50 | DRG 772 ==
LOC: ED 17:38 → MS3 06-05 07:08
PROVIDERS: Admitting Provider Internal Medicine; Emergency Provider Emergency Medicine; Visit Provider Internal Medicine
DX: F11.23 Opioid dependence with withdrawal (principal); E87.1 Hypo-osmolality and hyponatremia; F17.210 Nicotine dependence, cigarettes, uncomplicated; R03.0 Elevated blood-pressure reading, without diagnosis of hypertension; R94.6 Abnormal results of thyroid function studies; R00.0 Tachycardia, unspecified; Z11.52 Encounter for screening for COVID-19
CPT/HCPCS: 87631; 36415; 80048; 80053; 80307; 81001; 82077; 83735; 84100; 84443; 85025; 85027; 87493; 87506; 87633; 97802; 99284; H0012; J7030; J7120; A4216

== ENCOUNTER 2024-06-23 13:58 | Emergency (ER) | payer MEDICAID, SELFPAY ==
[2024-06-23 13:58] VITALS: BP 134/98; PULSE 81; RESP 16; TEMP 36.4; O2SAT 96; BMI 24.4
--- NOTE | 2024-06-23 14:11 | EX.ED.DYSGE1 ---
HPI History of Present Illness Chief Complaint: Nausea/Vomiting/Diarrhea Informant: patient Narrative Narrative: Awakened 2 days ago epigastric abdominal pain vomiting diarrhea. No hematemesis or hematochezia. Last emesis was 2 days ago. Last diarrhea was yesterday. Abdominal pain is subsiding today. He has not eaten. He is nauseous. Denies urinary symptoms. States has chills and sweats slight headache. There has been sick individuals at work. No cough. No allergies. History of anxiety and depression. No abdominal surgeries in the past. Denies alcohol use. Prior similar symptoms: No PFSH PFSH Medical History Alcohol abuse Substance abuse Anxiety Depression Smoker Migraines Drug abuse Home Medications ?Medication ?Instructions ?Recorded ?Last Taken ?Type nicotine 14 mg/24 hr daily 14 mg transdermal DAILY PRN 06/08/23 Unknown Rx transdermal patch nicotine craving #0 ea ondansetron 4 mg disintegrating 4 mg PO Q8H PRN PRN Nausea #10 tabs 06/23/24 Unknown Rx tablet pantoprazole 40 mg tablet,delayed 40 mg PO DAILY #30 tabs 06/23/24 Unknown Rx release Allergy/AdvReac Type Severity Reaction Status Date / Time No Known Allergies Allergy Verified 06/23/24 14:00 Social History household members: none Smoking Status: Former smoker substance use type: heroin ROS ROS ED Constitutional Constitutional ED: Denies chills, fever(s) or sweats ENT ENT ED: Denies sore throat Cardiovascular Cardiovascular: Denies chest pain, leg edema, palpitations or racing heartbeat Respiratory/Chest Respiratory/Chest: Denies cough, dyspnea or dyspnea on exertion Gastrointestinal Gastrointestinal: Reports abdominal pain, diarrhea, nausea and vomiting Genitourinary Genitourinary ED: Denies dysuria, hematuria or urinary frequency Musculoskeletal Musculoskeletal: Denies back pain, extremity pain or neck pain Integumentary Denies rash or wounds Neurologic Neurologic: Denies headache(s), paresthesias or weakness EXAM Physical Exam Const Vital Signs: 06/23/24 13:58 06/23/24 15:58 Temperature 97.5 F L Temperature Source Temporal Pulse Rate 81 84 Respiratory Rate 16 16 Blood Pressure 134/98 H 122/81 H Blood Pressure Mean 110 94 Pulse Ox 96 100 Oxygen Delivery Method Room Air Positive well nourished and well developed General Appearance ED: well developed and NAD HEENT Reports moist mucous membranes normocephalic and atraumatic Eyes General Eye ED: Yes normal appearance of both eyes Neck full ROM Chest Wall Chest: Negative for tenderness Resp normal respiratory effort and normal air movement Effort and Inspection: symmetric chest movement; Negative for respiratory distress Cardio regular rate, regular rhythm and no murmurs Peripheral Pulses: pulses 2+ throughout GI normal to inspection, nondistended, normoactive bowel sounds and non-tender GI Narrative: Negative Quijano's McBurney's tenderness. No guarding or rebound. No reproducible tenderness. Palpation: Negative for guarding or rebound tenderness present Extremity normal to inspection General Extremety ED: Negative for edema or tenderness General Extremity: Negative for edema Neuro oriented x3 and no sensory deficits noted Sensorium / Orientation: awake and alert Skin no rashes or lesions noted and no wounds MDM MDM MDM Narrative Medical decision making narrative: Interventions / MDM: Differential diagnosis: Pancreatitis, vomiting and diarrhea, abdominal pain. Diagnosis considered but do not suspect: N/A My EKG interpretation: N/A Imaging independently reviewed and interpreted by myself: CT abdomen pelvis IV contrast: Calcifications of the head of pancreas no pseudocyst no inflammatory changes noted. Mesenteric adenitis. Read by radiology. External documents reviewed: N/A Test considered but not ordered:N/A ED course: Vital signs stable afebrile nonsurgical abdomen. Moist mucosal membranes. Abdominal labs ordered, IV fluids Zofran and Pepcid. Viral swab sent. 1540: Patient's workup consistent with pancreatitis lipase 226. Normal liver enzymes. Normal white count. Normal creatinine. Ordered CT abdomen pelvis pancreatic calcifications no pseudocyst no inflammation. We discussed with the patient since he initially states he did not drink alcohol he states he does intermittently drink alcohol, he drank a little bit over the weekend. He has been on bowel rest for last 2 days. No pain out of proportion. No vomiting for 2 days no diarrhea for 1 day. He has had pancreatitis previously. He understands bowel rest. This time we will oral challenge with clears. 1637: Tolerated p.o. challenge. I will placed on pantoprazole and Zofran as needed. He be referred to GI. He is not requiring pain medications been bowel resting for 2 days. Discussed clears advance as tolerated. Return precaution discussed. All questions were answered. Re-evaluation: stable Disposition discussed with patient/family/significant other: Patient Case discussed with consulting clinician: N/A This note was generated with Quid dictation software. It may contain incorrect words, spelling, and punctuation that were not noted in checking the note before signing. Lab Data Attestation: I reviewed the patient's lab results. Labs: Laboratory Results - last 24 hr 06/23/24 14:07 WBC 7.6 RBC 5.21 Hgb 15.9 Hct 46.9 MCV 90.0 MCH 30.5 MCHC 33.9 RDW Std Deviation 41.1 RDW Coeff of Saundra 12.5 Plt Count 204 MPV 10.6 Immature Gran % (Auto) 0.300 Neut % (Auto) 75.4 H Lymph % (Auto) 15.8 L [place] % (Auto) 7.2 Eos % (Auto) 0.9 Baso % (Auto) 0.4 Absolute Neuts (auto) 5.7 Absolute Lymphs (auto) 1.19 Nucleated RBC % 0 Sodium 139 Potassium 3.8 Chloride 100 Carbon Dioxide 24.1 Anion Gap 15 BUN 17 Creatinine 0.87 Estim Creat Clear Calc 121.40 Est GFR (MDRD) Non-Af 110 BUN/Creatinine Ratio 19.1 Glucose 113 H Calcium 9.6 Total Bilirubin 0.42 AST 24 ALT 15 Alkaline Phosphatase 57 Total Protein 8.1 Albumin 4.7 Globulin 3.4 Albumin/Globulin Ratio 1.4 Lipase 226 H Radiography Diagnostic Testing: Clinical Impression(s) from Imaging Studies Abdomen/Pelvis CT 06/23/24 15:00 IMPRESSION: Mesenteric adenitis. Tiny calcifications in the head of the pancreas although no inflammatory changes seen at this time. One or more dose reduction techniques were used (e.g., Automated exposure control, adjustment of the mA and/or kV according to patient size, use of iterative reconstruction technique). Reading Location: [id number] Discharge Plan Triage Chief Complaint: Nausea/Vomiting/Diarrhea ED Provider: Naldo Aguilar Dx/Rx/DC Orders Clinical Impression: Acute pancreatitis, Abdominal pain, vomiting, and diarrhea, History of alcohol use Instructions: ED Pancreatitis, ED Vomiting (Adult) Prescriptions: New pantoprazole 40 mg tablet,delayed release (DR/EC) 40 mg PO DAILY Qty: 30 0RF ondansetron 4 mg tablet,disintegrating 4 mg PO Q8H PRN PRN (Reason: Nausea) Qty: 10 0RF No Action nicotine 14 mg/24 hr Patch 24 Hour 14 mg transdermal DAILY PRN (Reason: nicotine craving) Qty: 0 0RF Stand Alone Forms: ED Work / School Excuse Primary Care Provider: Care Physician,No Primary Referrals: Friend,Sundeep, [Med Staff - Active Staff] - 1-2 Weeks Care Physician,No Primary [Primary Care Provider] - Activity Restrictions/Additional Instructions: Labs consistent with pancreatitis. CT scan calcification in your pancreas however no inflammatory changes no pseudocyst. Continue your bowel rest clear liquid diet advance slowly. Take medications as prescribed. Follow-up with gastroenterology. Print Language: Georgian Disposition Disposition: Home, Self Care
[2024-06-23] MEDS: Ondansetron 4 MG/2 ML Vial IV (14:16)
[2024-06-23] MEDS: 0.9% Normal Saline (1000mL) 1,000 ML 999 ML IV (14:16)
[2024-06-23 14:22] LABS: Absolute Lymphocyte Count 1.19 X10^3/uL (0.83-4.51); Absolute Neutrophil Count 5.7 X10^3/uL (2.0-7.7); Basophil# 0.03 X10^3/uL; Basophil% 0.4 % (0-1); Eosinophil# 0.07 X10^3/uL; Eosinophils% 0.9 % (0-5); Hematocrit 46.9 % (40-54); Hemoglobin 15.9 g/dL (13.0-16.5); Lymphocyte # 1.19 X10^3/ul (0.83-4.51); Lymphocyte % 15.8 % (19-41); Mean Corp Hgb Conc 33.9 g/dL (32-36); Mean Corpuscular Hgb 30.5 pg (27.0-32.0); Mean Platelet Vol. 10.6 fl (6.2-12.0); Monocyte# 0.54 X10^3/uL; Monocyte% 7.2 % (0-10); NRBC Flagged by Analyzer 0 % (0-5); Neutrophil % 75.4 % (47-70); Platelet Count 204 K/mm3 (150-450); RBC Distribution Width CV 12.5 % (11.6-14.6); RBC Distribution Width SD 41.1 fl (35.1-43.9); Red Blood Count 5.21 M/mm3 (4.6-6.2); White Blood Count 7.6 K/mm3 (4.4-11.0)
[2024-06-23 14:39] LABS: Lipase 226 U/L (13-75)
[2024-06-23 14:46] LABS: ALB/GLOB Ratio 1.4 RATIO (0.9-2.4); AST(SGOT) 24 U/L (<=37); Alanine Aminotransfer ALT/SGPT 15 U/L (<=46); Albumin, Serum 4.7 g/dL (3.5-5.0); Alkaline Phosphatase 57 U/L (40-129); Anion Gap 15 (5-15); BUN 17 mg/dL (4-19); BUN/Creat Ratio 19.1 RATIO (10-20); Calcium,Total 9.6 mg/dL (7.6-11.0); Carbon Dioxide 24.1 mmol/L (21.0-32.0); Chloride 100 mmol/L (98-108); Creatinine, Serum 0.87 mg/dL (0.70-1.20); EST Glomerular Filtration Rate 110 (>60); Globulin 3.4 g/dL (2.2-4.2); Glucose 113 mg/dL (70-99); Potassium 3.8 mmol/L (3.3-5.1); Protein, Total 8.1 g/dL (5.9-8.4); Sodium Level 139 mmol/L (133-145); Total Bilirubin 0.42 mg/dL (0.00-1.30)
[2024-06-23] MEDS: Famotidine 200 MG/20 ML MDV 20 MG in 0.9% Normal Saline (Pres. free 8 ML 300 MG IV (14:48)
--- NOTE | 2024-06-23 15:00 | CT_ITS ---
PROCEDURE: ABDOMEN/PELVIS W IV CONT ONLY REASON FOR EXAM: PANCREATITIS 3 day history of nausea and vomiting. TECHNIQUE: Abdomen and pelvis CT with intravenous contrast. No oral contrast. IV CONTRAST: 86 cc of Isovue-300. COMPARISON: None. FINDINGS: Lung bases: Minimal degree of right linear basilar atelectasis. Liver: Unremarkable. Gallbladder: Unremarkable. Spleen: Unremarkable. Pancreas: 2 mm calcification in the head of the pancreas within the pancreatic duct. A similar-appearing calcification is seen more distally towards the ampulla of Vater. No definite inflammatory changes are seen in the region of the pancreas. Adrenals: Unremarkable. Kidneys: Unremarkable. Bladder: Unremarkable. Bowel: Colonic diverticulosis without diverticulitis. Appendix: Normal. Lymph nodes: Calcified mesenteric lymph node seen in the right lower quadrant. Small mesenteric lymph nodes are also seen in the right lower quadrant. Vasculature: Major vascular structures are unremarkable. Peritoneum / Retroperitoneum: No ascites. No free air. Bones: Unremarkable. CT/Abdomen/Pelvis W IV Cont ONLY IMPRESSION: Mesenteric adenitis. Tiny calcifications in the head of the pancreas although no inflammatory change s seen at this time. One or more dose reduction techniques were used (e.g., Automated exposure contr ol, adjustment of the mA and/or kV according to patient size, use of iterative reconstruction technique). Reading Location: [id number]
[2024-06-23 15:58] VITALS: BP 122/81; PULSE 84; RESP 16; O2SAT 100
== END 2024-06-23 16:55 | disposition home or self-care (01) ==
PROVIDERS: Emergency Provider Emergency Medicine; Referring Provider Emergency Medicine; Visit Provider Emergency Medicine
DX: K85.90 Acute pancreatitis without necrosis or infection, unspecified (principal); I88.0 Nonspecific mesenteric lymphadenitis; Z87.891 Personal history of nicotine dependence; R11.2 Nausea with vomiting, unspecified; R19.7 Diarrhea, unspecified
CPT/HCPCS: 74177; 80053; 83690; 85025; 87631; 96365; 96375; 99283; Q9967; A4216; J2405

== ENCOUNTER 2024-07-27 11:25 | Emergency (ER) | payer MEDICAID, SELFPAY ==
[2024-07-27 11:26] VITALS: BP 140/91; PULSE 80; RESP 18; TEMP 36.4; O2SAT 99; BMI 26.9
--- NOTE | 2024-07-27 11:39 | EX.ED.DYSGE1 ---
HPI <SAMANTHA Fuller - Last Filed: 07/27/24 11:50> History of Present Illness Chief Complaint: Rash Narrative Narrative: Patient is a 44-year-old male with history of opiate abuse who is on Suboxone for 1 year, depression who presents emerged part with rash to both wrists, chest and also complaining of facial pain. Pay states the facial pain and rash been going on for 1 week. The facial pain is much worse at nighttime. He states that last evening, his entire face including his lips were hurting. He states it feels like a throbbing sensation. He states he does feel better now, the rash does not itch, he denies any fever chills. Denies any sick contacts [facility] <SAMANTHA Fuller - Last Filed: 07/27/24 11:50> [facility] Medical History Alcohol abuse Substance abuse Anxiety Depression Smoker Migraines Drug abuse Home Medications ?Medication ?Instructions ?Recorded ?Last Taken ?Type nicotine 14 mg/24 hr daily 14 mg transdermal DAILY PRN 06/08/23 Unknown Rx transdermal patch nicotine craving #0 ea ondansetron 4 mg disintegrating 4 mg PO Q8H PRN PRN Nausea #10 tabs 06/23/24 Unknown Rx tablet pantoprazole 40 mg tablet,delayed 40 mg PO DAILY #30 tabs 06/23/24 Unknown Rx release Allergy/AdvReac Type Severity Reaction Status Date / Time No Known Allergies Allergy Verified 06/23/24 14:00 Social History household members: none Smoking Status: Former smoker substance use type: heroin ROS <SAMANTHA Fuller - Last Filed: 07/27/24 11:50> ROS ED ROS Narrative Constitutional: Negative for fever, chills, weight loss, weakness Eyes: Negative for vision loss, vision change, double vision ENT: Negative for any sore throat, ear pain, congestion. Positive for full facial pain Cardiovascular: Negative for any chest pain, tightness, palpitations Respiratory: Negative for any cough, sputum production, hemoptysis, dyspnea, dyspnea on exertion, orthopnea Gastrointestinal: Negative for any abdominal pain, nausea, vomiting, diarrhea, constipation, blood in stool, blood in vomit : Negative for any urinary frequency, dysuria, retention, blood in urine Muscle skeletal: Negative for any neck pain, back pain Neurological: Negative for any headache, syncope, dizziness Skin: Negative for any itching, abrasions, lacerations. Positive for rash Psychiatric: Negative for any depression, anxiety, stress, suicidal ideation, homicidal ideation Hematologic: Negative for any excessive bruising, easy bleeding EXAM <SAMANTHA Fuller - Last Filed: 07/27/24 11:50> Physical Exam Narrative Exam Narrative: Vital signs reviewed. HEET: Head normocephalic atraumatic, TMs clear bilaterally. Posterior pharynx is clear, moist mucous membranes. Nares clear bilaterally. Pupils are equal round reactive to light. There is no signs of infection. Pushing on the maxillary, frontal, ethmoid sinuses did not reveal any pain. Neck: Supple with no lymphadenopathy or tenderness. No signs of meningismus. Cardiac: Regular rate and rhythm no murmurs gallops or rubs, equal peripheral pulses bilaterally. Respiratory: Lungs clear to auscultation bilaterally. No chest tenderness. Abdomen: Soft, nontender, nondistended. No abdominal bruit or pulsatile masses. No hepatosplenomegaly Extremities: No peripheral edema, no signs of gross trauma or deformity. Active full range of motion of all extremities. Neuro: Cranial nerves II through XII intact, no focal neurological deficits. Skin: Clean dry and intact. Patient does have a rash to both wrist, this is small red dots, there is no vesicles. Do not come to ahead. There is no significant erythema, they all seem to be separate. There is no hives. This is also the same on his chest upper neck as well as right ankle. Backs/flank: No CVA tenderness, no midline spinal tenderness, no deformity. Psych: Normal mood and affect. No SI, HI or acute psychosis. Const Vital Signs: 07/27/24 11:26 Temperature 97.5 F L Temperature Source Oral Pulse Rate 80 Respiratory Rate 18 Blood Pressure 140/91 H Blood Pressure Mean 107 Pulse Ox 99 Oxygen Delivery Method Room Air <Dr. Abdullahi Najera MD - Last Filed: 07/27/24 11:54> Physical Exam Const Vital Signs: 07/27/24 11:26 Temperature 97.5 F L Temperature Source Oral Pulse Rate 80 Respiratory Rate 18 Blood Pressure 140/91 H Blood Pressure Mean 107 Pulse Ox 99 Oxygen Delivery Method Room Air [facility] <SAMANTHA Fuller - Last Filed: 07/27/24 11:50> [facility] Treatment and Re-Evaluation :: Differential diagnosis includes however is not limited to: Acute sinusitis, measles, allergic reaction, cellulitis, folliculitis Patient appears generally well, vital signs are stable, patient is nontoxic-appearing. Presenting to the emergency department for complaints of rash as well as facial pain. At this time, patient be diagnosed with a rash unsure etiology. Patient has no red flag signs, there is no fever or chills, the rash does not itch, this is not allergic, the patient has minimal to no facial pain at this time. He has no drainage, facial pressure. There is no evidence of acute sinusitis. Patient will follow-up with dermatology as well as a primary care doctor, instructed return for any worsening symptoms, stable for discharge <Dr. Abdullahi Najera MD - Last Filed: 07/27/24 11:54> [facility] Narrative Medical decision making narrative: I have personally performed a face to face assessment of the patient and have reviewed the JJ Note. I performed a substantive portion of the visit including all aspects of the following. My kaufman findings include: History is 44-year-old male with a rash that started on his forearms as well as on his right lower leg and upper chest lower neck. Denies any new soaps, colognes or detergents. Says it does not itch. He has not been ill recently. He denies any fever or chills. Has not been sick. He is also complaining of just pain to his face in general. No fall injury or trauma. No dental pain. Exam is [well-appearing 44-year-old male. Vital signs stable afebrile. H EENT exam pupils round react light. Extra motions are intact. There is no facial tenderness or swelling. No sinus tenderness. Dentitions intact. No trouble opening closing his mouth. No obvious cavities. No obvious gingival swelling. No dental abscess. Tongue is normal. Floor of his mouth is unremarkable. No trouble swallowing or breathing. TMs are normal bilaterally. Neck nontender no lymphadenopathy no murmur. Heart regular rhythm and rate about 80. Lungs clear equal and symmetrical. Chest wall nontender. He does have a nondescript rash on the base of his neck upper chest that does not stephanie. No petechiae appropriate. No ulcerations. No sloughing of skin. No pustules or vesicles. Abdomen soft nontender. Moving all 4 extremities. Nontender no edema. Rash on both distal forearms. Is nondescript. Again no pustules. No sloughing of skin. No cellulitis. Is not tender. This is not measles. It is not chickenpox. Is not cellulitis. Right lower extremity is a same rash. Neurologically is awake and alert. No focal motor deficits. Back nontender no rash. Medical Decision Making [44-year-old male is a rash is pretty nondescript. He is having no itching he does not look allergic. It does not look infectious. I will refer to dermatology for further evaluation. Facial pain clinically he has no tenderness to his face it does not appear to be from dental. Does appear to be from a sinus infection. He has had no trauma he does not need any imaging. Motrin Tylenol for pain. 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.] Other additions or changes: [None] History & Record Review Discussion w/independent historian: Patient Additional record(s) reviewed:: Prior inpatient record, Prior outpatient record, Prior ED visit and Prior labs Discharge Plan Triage Chief Complaint: Rash ED Midlevel Provider: Florentino Lazo ED Provider: Abdullahi Najera Dx/Rx/DC Orders Clinical Impression: Rash, Acute facial pain Prescriptions: No Action nicotine 14 mg/24 hr Patch 24 Hour 14 mg transdermal DAILY PRN (Reason: nicotine craving) Qty: 0 0RF pantoprazole 40 mg tablet,delayed release (DR/EC) 40 mg PO DAILY Qty: 30 0RF ondansetron 4 mg tablet,disintegrating 4 mg PO Q8H PRN PRN (Reason: Nausea) Qty: 10 0RF Primary Care Provider: Care Physician,No Primary Referrals: Melani Gann MD [Non-Staff] - As soon as possible Care Physician,No Primary [Primary Care Provider] - Xenia Ward, [employer] [[facility]] - As soon as possible Activity Restrictions/Additional Instructions: Motrin and Tylenol for your facial pain. There is nothing specific on exam to say what is causing it. Call and follow-up with the [facility] to get a primary care provider. Call and follow-up with Dr. Melani Gann a local mattress inspector to be evaluated for the rash. Print Language: Omani Disposition Disposition: Home, Self Care
[2024-07-27 11:54] VITALS: BP 140/91; PULSE 80; RESP 16; TEMP 36.4; O2SAT 99
== END 2024-07-27 11:57 | disposition home or self-care (01) ==
PROVIDERS: Emergency Provider Emergency Medicine; Referring Provider Emergency Medicine; Visit Provider Emergency Medicine
DX: R21 Rash and other nonspecific skin eruption (principal); F11.11 Opioid abuse, in remission; R51.9 Headache, unspecified; F32.A Depression, unspecified; Z87.891 Personal history of nicotine dependence
CPT/HCPCS: 99282